=== PATIENT | male | born 1990 | race African-American/Black ===

== ENCOUNTER 2021-03-25 13:59 | Emergency (ER) | payer SELFPAY ==
[2021-03-25] MEDS ORDERED: IV NORMAL SALINE 1000ML BAG 1,000 ML IV SCH (14:15)
[2021-03-25 14:19] LABS: BASO # 0.1 x10^3/uL (0.0-0.2); BASO % 1 % (0-3); EOS # 0.1 x10^3/uL (0.0-0.7); EOS % 1 % (0-3); HEMATOCRIT 47.9 % (39.0-53.0); HEMOGLOBIN 16.2 g/dL (13.0-17.5); LYMPH # 4.8 x10^3/uL (1.0-4.8); LYMPH % 37 % (24-48); MEAN CORPUSCULAR HEMOGLOBIN 33 pg (25-35); MEAN CORPUSCULAR HGB CONC 34 g/dL (31-37); MEAN CORPUSCULAR VOLUME 98 fL (79-100); MONO # 1.2 x10^3/uL (0.0-1.1); MONO % 9 % (0-9); NEUT # 6.7 x10^3/uL (1.8-7.7); NEUT % 52 % (31-73); PLATELET COUNT 233 x10^3/uL (140-400); RED BLOOD COUNT 4.87 x10^6/uL (4.30-5.70); RED CELL DISTRIBUTION WIDTH 14.9 % (11.5-14.5); WHITE BLOOD COUNT 12.9 x10^3/uL (4.0-11.0)
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
[2021-03-25 14:28] LABS: PROTHROMBIN TIME PATIENT 12.6 SEC (11.7-14.0)
[2021-03-25 14:35] LABS: CALCIUM 9.2 mg/dL (8.5-10.1); GFR 86.6; POTASSIUM 3.7 mmol/L (3.5-5.1)
[2021-03-25 14:43] LABS: ALBUMIN 4.6 g/dL (3.4-5.0); ALBUMIN/GLOBULIN RATIO 1.2 (1.0-1.7); TOTAL BILIRUBIN 1.4 mg/dL (0.2-1.0); TOTAL PROTEIN 8.5 g/dL (6.4-8.2)
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
[2021-03-25] MEDS ORDERED: IOHEXOL 240 MG/ML 50ML VIAL. PO ONE (15:30)
[2021-03-25] MEDS ORDERED: IOHEXOL 300 MG/ML 100ML VIAL. IV ONE (15:30)
[2021-03-25] MEDS ORDERED: CONTRAST GIVEN. MC PRN (15:30)
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
[2021-03-25] MEDS ORDERED: PIPERACILLIN/TAZOBACTAM 3.375 GM in IV NORMAL SALINE 50ML 50 ML IV ONE (17:00)
[2021-03-25] MEDS ORDERED: MORPHINE SULFATE 4 MG/ML VIAL. IV ONE (17:30)
== END 2021-03-25 21:28 ==
LOC: ER 13:59
DX: S01.312A Laceration without foreign body of left ear, initial encounter (principal); S21.111A Laceration without foreign body of right front wall of thorax without penetration into thoracic cavity, initial encounter; Z20.822 Contact with and (suspected) exposure to COVID-19; M54.2 Cervicalgia; R20.2 Paresthesia of skin; R51.9 Headache, unspecified; Y08.89XA Assault by other specified means, initial encounter; Y93.89 Activity, other specified; Y92.89 Other specified places as the place of occurrence of the external cause; Y99.8 Other external cause status
CPT/HCPCS: 36415; 70450; 70492; 71045; 71270; 80053; 84484; 85025; 85610; 85730; 86850; 86900; 86901; 87426; 96361; 96365; 96375; 99285; G0480; J2270; J2543; J7030; Q9966; Q9967; U0003; U0005